=== PATIENT | male | born 2005 | race Asian ===

== ENCOUNTER 2025-06-15 16:54 | Emergency (ER) | payer OTHER ==
[~2025-06-15] VITALS: Ht 175.3 cm; Wt 68.0 kg
[2025-06-15 16:58] VITALS: O2SAT 99
[2025-06-15] MEDS ORDERED: METH4TAB95 MT (18:38)
[2025-06-15] MEDS ORDERED: GUAI400T93 MT (18:38)
[2025-06-15] MEDS: DEXAMETHASONE 10 MG/ML VIAL IV ONE (18:48)
[2025-06-15 18:53] VITALS: BP 115/74; PULSE 99; RESP 18; TEMP 36.9; O2SAT 99
== END 2025-06-15 18:53 | disposition home or self-care (01) ==
LOC: ER 16:54
DX: B34.9 Viral infection, unspecified (principal); I10 Essential (primary) hypertension
CPT/HCPCS: 99283; 96374; J1100